=== PATIENT | female | born 1965 | race Caucasian/White ===

== ENCOUNTER 2019-10-14 06:17 | Day surgery (SDC) | payer OTHER ==
[~2019-10-14 06:17] MED LIST: Lactated Ringers 1,000 ML IV SCH; Lidocaine 1%/Sod Bicarbonate in NS 8.4% 1 ML Syringe IDERM PRN; Sodium Chloride 0.9% 10 ML Syringe FLUSH PRN
[2019-10-14] MEDS ORDERED: Bupivacaine 0.25% 10 ML SDV ONE (06:39)
--- NOTE | 2019-10-14 07:10 | PCM.PREANE ---
Preanesthetic Assessment - Anesthesia/Transfusion/Family Hx Anesthesia History: Prior Anesthesia Without Reaction Family History of Anesthesia Reaction: No - Review of Systems General: No Symptoms Pulmonary: No Symptoms Cardiovascular: No Symptoms Gastrointestinal: No Symptoms Neurological: No Symptoms Other: Reports: None - Physical Assessment NPO Status Date: 10/13/19 NPO Status Time: 17:00 Vital Signs: Last Vital Signs Temp 97.1 F 10/14/19 06:25 Pulse 58 L 10/14/19 06:25 Resp 16 10/14/19 06:25 BP 122/64 10/14/19 06:25 Pulse Ox 98 10/14/19 06:25 Height: 1.57 m Weight: 58.06 kg ASA Class: 1 Mental Status: Alert & Oriented x3 Airway Class: Mallampati = 1 Dentition: Reports: Normal Dentition Thyro-Mental Finger Breadths: 3 Mouth Opening Finger Breadths: 3 ROM/Head Extension: Full Lungs: Clear to Auscultation, Normal Respiratory Effort Cardiovascular: Regular Rate, Regular Rhythm - Lab Values: Laboratory Last Values MRSA (PCR) Negative 10/08/19 16:08 - Allergies Allergies/Adverse Reactions: Allergies Allergy/AdvReac Type Severity Reaction Status Date / Time Sulfa (Sulfonamide Allergy Rash Verified 10/11/19 10:22 Antibiotics) - Acknowledgements Anesthesia Type Planned: MAC Pt an Appropriate Candidate for the Planned Anesthesia: Yes Alternatives and Risks of Anesthesia Discussed w Pt/Guardian: Yes Pt/Guardian Understands and Agrees with Anesthesia Plan: Yes PreAnesthesia Questionnaire Cardiovascular History: Reports: None Respiratory History: Reports: None Gastrointestinal History: Reports: None 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 Musculoskeletal History: Reports: None Neurological History: Reports: None Psychiatric History: Reports: None Endocrine/Metabolic History: Reports: None Hematologic History: Reports: None Immunologic History: Reports: None Oncologic (Cancer) History: Reports: None Dermatologic History: Reports: None - Past Surgical History HEENT Surgical History: Reports: None Cardiovascular Surgical History: Reports: None Respiratory Surgical History: Reports: None GI Surgical History: Reports: Appendectomy, Colonoscopy Female Surgical History: Reports: Breast Biopsy, Hysterectomy Male Surgical History: Reports: None Endocrine Surgical History: Reports: None Neurological Surgical History: Reports: None Musculoskeletal Surgical History: Reports: Shoulder Replacement Oncologic Surgical History: Reports: None Dermatological Surgical History: Reports: None - SUBSTANCE USE Smoking Status *Q: Former Smoker Recreational Drug Use History: No - HOME MEDS Home Medications: Home Meds . [No Known Home Meds] 10/11/19 [History] - CURRENT (IN HOUSE) MEDS Current Meds: Current Medications Lactated Ringer's (Ringers, Lactated) 1,000 mls @ 125 mls/hr IV ASDIRECTED CHERYLE Stop: 10/14/19 23:00 Last Admin: 10/14/19 06:35 Dose: 125 mls/hr Lidocaine/Sodium Bicarbonate (Buffered Lidocaine 1% In Ns 8.4%) 0.25 ml IDERM ONETIME PRN PRN Reason: Prior to IV Start Stop: 10/14/19 18:00 Last Admin: 10/14/19 06:35 Dose: 0.25 ml Sodium Chloride (Saline Flush) 10 ml FLUSH ASDIRECTED PRN PRN Reason: Keep Vein Open Stop: 10/14/19 18:00 Discontinued Medications Bupivacaine HCl (Sensorcaine-Mpf 0.25%) Confirm Administered Dose 20 ml .ROUTE .STK-MED ONE Stop: 10/14/19 06:40
[2019-10-14] MEDS ORDERED: Midazolam 1 MG/ML 2 ML SDV ONE (07:12)
[2019-10-14] MEDS ORDERED: Lidocaine 1% 4 ML ONE (07:12)
[2019-10-14] MEDS ORDERED: fentaNYL 100 MCG/2 ML SDV ONE (07:12)
[2019-10-14] MEDS ORDERED: Propofol 200 MG/20 ML SDV ONE (07:12)
[2019-10-14] MEDS ORDERED: Ondansetron 4 MG/2 ML SDV ONE (07:20)
[2019-10-14] MEDS ORDERED: Lidocaine 1% with EPINEPHrine 1:100,000 20 ML MDV ONE (07:31)
[2019-10-14] MEDS ORDERED: Lidocaine 1% 50 ML MDV ONE (07:31)
--- NOTE | 2019-10-14 08:04 | PCM48HPAN ---
Post Anesthesia Note - EVALUATION WITHIN 48HRS OF ANESTHETIC Vital Signs in Normal Range: Yes Patient Participated in Evaluation: Yes Respiratory Function Stable: Yes Airway Patent: Yes Cardiovascular Function Stable: Yes Hydration Status Stable: Yes Pain Control Satisfactory: Yes Nausea and Vomiting Control Satisfactory: Yes Mental Status Recovered: Yes Vital Signs: Last Vital Signs Temp 97.0 F 10/14/19 07:45 Pulse 66 10/14/19 08:02 Resp 16 10/14/19 08:02 BP 92/53 L 10/14/19 08:02 Pulse Ox 98 10/14/19 08:02
--- NOTE | 2019-10-18 11:27 | PCM.OPNOTE ---
- General Post-Op/Procedure Note Date of Surgery/Procedure: 10/14/19 Operative Procedure(s): excision of right middle finger mass Pre Op Diagnosis: right middle finger mass Post-Op Diagnosis: Same Anesthesia Technique: Local, MAC Primary Surgeon: Presley Humphreys Anesthesia Provider: Chuy Mendenhall Manager Ui: Elsie Koo in mLs: 1 Complications: None Condition: Good
--- NOTE | 2019-10-18 12:16 | OR ---
DATE OF OPERATION: 10/14/2019 SURGEON: Presley Humphreys MD OPERATION PERFORMED: Excision of right middle finger mass. PREOPERATIVE DIAGNOSIS: Right middle finger mass. POSTOPERATIVE DIAGNOSIS: Right middle finger mass. ANESTHESIA: Local MAC. ANESTHESIA PROVIDER: Chuy Mendenhall. PRODUCT SAFETY COORDINATOR: Elsie Koo PA-C. ESTIMATED BLOOD LOSS: 1 mL. COMPLICATIONS: None. CONDITION: Stable. DESCRIPTION OF PROCEDURE: The patient was identified in the preop holding area. Proper site was marked and identified by the surgeon. The patient was taken back to the operating theater where after adequate anesthesia, the patient's right upper extremity was sterilely prepped and draped in the usual sterile fashion. An OR time-out was performed. The patient received 2 g IV Ancef. At this time, the right upper extremity was exsanguinated with the use of an Esmarch. An Esmarch was used as a tourniquet on the forearm. 1% lidocaine without epinephrine and 0.25% Marcaine without epinephrine were then utilized to do a digital block of the right middle finger. Once this had set up, a longitudinal incision was made over the middle phalanx on the radial side directly over the mass just in the subcutaneous tissue. A small mass roughly 2.5 to 3 mm x 3 mm was excised. There was no other adherence to tissue. There was no other mass noted. At this time, excess saline was drained from the wound. 4-0 nylon sutures were used for closure of the skin. The patient was placed in a sterile soft dressing and sent to PACU in stable condition and the mass was sent for pathologic specimen. MMODAL /[id number]
== END 2019-10-14 08:30 | disposition home or self-care (01) ==
LOC: JD.SDS 06:17
PROVIDERS: ATTEND Orthopaedic Surgery
DX: D18.01 Hemangioma of skin and subcutaneous tissue (principal); Z88.2 Allergy status to sulfonamides; Z79.82 Long term (current) use of aspirin
CPT/HCPCS: 11423; 87641; J2001; J2250; J2405; J2704; J3010; J3490; J7120; 01810